=== PATIENT | female | born 1970 | race Caucasian/White ===

== ENCOUNTER 2021-09-22 21:38 | Emergency (ER) | payer MEDICAID ==
[~2021-09-22] VITALS: Ht 170.2 cm; Wt 52.0 kg
[2021-09-22 22:10] VITALS: BP 174/93
== END 2021-09-23 02:40 | disposition left against medical advice (07) ==
LOC: ER 21:39
DX: R07.89 Other chest pain (principal); Z53.21 Procedure and treatment not carried out due to patient leaving prior to being seen by health care provider
CPT/HCPCS: 93005